=== PATIENT | male | born 1995 | race Caucasian/White ===

== ENCOUNTER 2017-05-09 19:49 | Emergency (ER) | payer OTHER ==
[2017-05-09] MEDS ORDERED: Famotidine 20 MG/2 ML SDV IVPUSH ONE (20:01)
[2017-05-09] MEDS ORDERED: diphenhydrAMINE 50 MG/ML SDV IVPUSH ONE (20:01)
[2017-05-09] MEDS ORDERED: methylPREDNISolone Sodium Succinate 125 MG/2 ML SDV IVPUSH ONE (20:01)
--- NOTE | 2017-05-09 20:05 | EDM.PDOC ---
ED HPI GENERAL MEDICAL PROBLEM - General Chief Complaint: Allergic Reaction Stated Complaint: ALLERGY POSSIBLE HORSERADISH Time Seen by Provider: 05/09/17 19:51 Source of Information: Reports: Patient, Family History Limitations: Reports: No Limitations - History of Present Illness INITIAL COMMENTS - FREE TEXT/NARRATIVE: This is a 21-year-old male. He apparently had some pretty potent horse radish sauce and immediately after eating it he began to have difficulty in breathing with wheezing. He took 2 - 25 mg Benadryl by mouth and denies any swelling of his throat or difficulty in swallowing but his eyelids began to swell as well. The wheezing is pretty much resolved at this time. He did not vomit he has no stomach upset at this time. He has no history of allergies to horse radish in the past. He says he has some seasonal type allergies but other than that he is not allergic to anything. Other then his eyelid swelling he says he is feeling better. - Related Data Allergies Allergy/AdvReac Type Severity Reaction Status Date / Time cefaclor [From [facility]] Allergy Rash Verified 05/09/17 20:01 Penicillins Allergy Rash Verified 05/09/17 20:01 Home Meds: Home Meds Citalopram Hydrobromide [Celexa] 10 mg PO DAILY 05/09/17 [History] EPINEPHrine [Epipen] 0.3 mg IM ONETIME PRN #1 ml 05/09/17 [Rx] Montelukast [Singulair] 10 mg PO DAILY 05/09/17 [History] ED ROS ALLERGIC REACTION - Review of Systems Review Of Systems: See Below Constitutional: Denies: Fever, Chills HEENT: Reports: Other (As per history of present illness) Respiratory: Reports: Shortness of Breath, Wheezing. Denies: Cough Cardiovascular: Reports: No Symptoms Endocrine: Reports: No Symptoms GI/Abdominal: Denies: Abdominal Pain, Nausea, Vomiting : Reports: No Symptoms Musculoskeletal: Reports: No Symptoms Skin: Reports: No Symptoms Neurological: Reports: No Symptoms Psychiatric: Reports: No Symptoms Hematologic/Lymphatic: Reports: No Symptoms ED EXAM GENERAL NO PERIP PULSE - Physical Exam Exam: See Below Exam Limited By: No Limitations General Appearance: Alert, WD/WN, No Apparent Distress Eye Exam: Bilateral Eye: EOMI, Other (His bilateral eyelids are slightly swelling the upper more than the lower, looking at both of his eyes the sclera is not swollen, the anterior chamber is clear and he denies any change in his vision) Ears: Normal External Exam, Normal Canal, Normal TMs Nose: Normal Inspection, Normal Mucosa Throat/Mouth: Normal Inspection, Normal Lips, Normal Oropharynx, Normal Voice, No Airway Compromise, Other (He denies any difficulty in swallowing or breathing at this time) Head: Normocephalic Neck: Normal Inspection, Supple Respiratory/Chest: No Respiratory Distress, Lungs Clear, Normal Breath Sounds. No: Crackles, Rales, Rhonchi, Wheezing Cardiovascular: Regular Rate, Rhythm, No Murmur GI/Abdominal: Soft, Non-Tender Back Exam: Full Range of Motion Extremities: Normal Inspection, Normal Range of Motion Neurological: Alert, Oriented Psychiatric: Normal Affect, Normal Mood Skin Exam: Warm, Dry Course - Vital Signs Last Recorded V/S: Last Vital Signs Temp 98.2 F 05/09/17 19:55 Pulse 70 05/09/17 19:55 Resp 20 05/09/17 19:55 BP 135/68 05/09/17 19:55 Pulse Ox 100 05/09/17 19:55 - Orders/Labs/Meds Meds: Medications Discontinued Medications Generic Name Dose Route Start Last Admin Trade Name Freq PRN Reason Stop Dose Admin Diphenhydramine HCl 25 mg 05/09/17 20:01 05/09/17 20:20 Benadryl IVPUSH 05/09/17 20:02 25 mg ONETIME ONE Administration Famotidine 20 mg 05/09/17 20:01 05/09/17 20:18 Pepcid IVPUSH 05/09/17 20:02 20 mg ONETIME ONE Administration Methylprednisolone Sodium Succinate 125 mg 05/09/17 20:01 05/09/17 20:16 Solu-Medrol IVPUSH 05/09/17 20:02 125 mg ONETIME ONE Administration - Re-Assessments/Exams Free Text/Narrative Re-Assessment/Exam: 05/09/17 20:42 The patient was here for about an hour after the medications and his eyelids are a looking better and he is doing just fine. He wants to go home. Departure - Departure Time of Disposition: 20:42 Disposition: Home, Self-Care 01 Condition: Good Clinical Impression: Wheezing, Swelling of left eyelid, Swelling of right eyelid Dyspnea Qualifiers: Dyspnea type: unspecified Qualified Code(s): R06.00 - Dyspnea, unspecified Allergic reaction to food Qualifiers: Encounter type: initial encounter Qualified Code(s): T78.1XXA - Other adverse food reactions, not elsewhere classified, initial encounter - Discharge Information Prescriptions: EPINEPHrine [Epipen] 0.3 mg IM ONETIME PRN #1 ml PRN Reason: Wheezing Instructions: Anaphylactic Reaction Forms: ED Department Discharge Additional Instructions: Avoid all products that have horseradish in them, get the generic EpiPen and use as needed for allergic reactions especially if there is difficulty in swallowing or difficulty in breathing, continue with Benadryl 25 mg every 6 hours for the next 24 hours, return to the ER if your symptoms worsen with difficulty in breathing or difficulty in swallowing, follow-up with your doctor as needed
== END 2017-05-09 20:53 | disposition home or self-care (01) ==
LOC: JD.ED 19:49
DX: T78.1XXA Other adverse food reactions, not elsewhere classified, initial encounter (principal); R06.2 Wheezing; R06.00 Dyspnea, unspecified; H02.89 Other specified disorders of eyelid; Z79.899 Other long term (current) drug therapy; Z88.0 Allergy status to penicillin; Z88.1 Allergy status to other antibiotic agents
CPT/HCPCS: 96374; 96375; 99283; J1200; J2930; 99284